=== PATIENT | female | born 1960 | race Caucasian/White ===

== ENCOUNTER 2018-02-25 18:45 | Emergency (ER) | payer BC, SELFPAY ==
--- NOTE | 2018-02-25 19:48 | RAD ---
TWO VIEWS CHEST 02/25/18 PROVIDED CLINICAL HISTORY: Chest pain. FINDINGS: No comparisons. The cardiac and mediastinal silhouette is within normal limits. No focal consolidation, pleural fluid or pneumothorax apparent. IMPRESSION: No evidence for an acute cardiopulmonary process. POS: [facility]
[2018-02-25] MEDS ORDERED: Ketorolac Tromethamine 30 MG/ML VIAL ONE (20:33)
--- NOTE | 2018-02-25 22:21 | CT ---
CT CHEST 02/25/18 PROVIDED CLINICAL HISTORY: Left rib pain. FINDINGS: The heart, pericardium and great vessels are suboptimally evaluated in the absence of IV contrast but demonstrate an unremarkable unenhanced CT appearance with the exception of minimal vascular calcific ation. The lungs are free of significant opacity. The airway appears patent and of normal caliber. No pleural fluid or pneumothorax apparent. The osseous structures demonstrate no evidence for an acute abnormality. There is a 3 cm left adrenal adenoma. IMPRESSION: No evidence for an acute process. POS: [facility]
== END 2018-02-25 21:37 | disposition home or self-care (01) ==
LOC: ERS 18:45
DX: S29.011A Strain of muscle and tendon of front wall of thorax, initial encounter (principal); I10 Essential (primary) hypertension; E03.9 Hypothyroidism, unspecified; E78.5 Hyperlipidemia, unspecified; F41.9 Anxiety disorder, unspecified; X50.9XXA Other and unspecified overexertion or strenuous movements or postures, initial encounter
CPT/HCPCS: 71046; 71250; 96372; J1885

== ENCOUNTER 2020-10-13 13:57 | Inpatient (IN) | payer SELFPAY ==
[2020-10-13 15:00] LABS: Actual Bicarbonate (HCO3a) 22.5 mEq/L (22-28); Analyzer IN Cardio ER; Base Excess (BEa) -0.9 mEq/L (-2.0 to +3.0); Calcium, Ionized (arterial) 1.08 mmol/L (1.12-1.30); Hemoglobin (Hb) 14.8 g/dL (12.0-16.0); Potassium - ABG Lab 3.12 mmol/L (3.70-5.30); pH, Arterial 7.44 (7.35-7.45)
[2020-10-13] MEDS ORDERED: Dexamethasone 10 MG/ML VIAL ONE (15:04)
[2020-10-13 15:23] LABS: Puncture Site LRA
[2020-10-13 15:40] LABS: CKMB 5.9 ng/mL (0-6.6)
[2020-10-13] MEDS ORDERED: Dextrose 50% Abboject 50 ML SYRINGE SLOW IVP PRN (16:26)
[2020-10-13] MEDS ORDERED: Dextrose 5% in Water 1,000 ML IV PRN (16:26)
[2020-10-13] MEDS ORDERED: HumaLOG 300 UNITS/3 ML VIAL SC PRN (16:26)
[2020-10-13] MEDS ORDERED: Metoclopramide HCl 10 MG/2 ML VIAL IVP PRN (16:30)
[2020-10-13] MEDS ORDERED: guaiFENesin 200 MG TAB PO PRN (16:32)
[2020-10-13] MEDS: Sodium Chloride 0.9% 1,000 ML IV SCH (16:50)
[2020-10-13] MEDS ORDERED: Albuterol 200 PUFF (6.7GM INHALER) INH PRN (17:21)
[2020-10-13] MEDS ORDERED: Atorvastatin Calcium 20 MG TAB PO SCH (21:00)
[2020-10-13] MEDS ORDERED: Famotidine/PF 20 mg/2ml Vial ONE (22:10)
[2020-10-13] MEDS ORDERED: Enoxaparin Sodium 40 MG/0.4 ML SYRINGE ONE (22:10)
[2020-10-13] MEDS: Famotidine/PF 20 mg/2ml Vial SLOW IVP SCH (22:30)
[2020-10-13] MEDS: Enoxaparin Sodium 40 MG/0.4 ML SYRINGE SC SCH (22:30)
[2020-10-13] MEDS ORDERED: Acetaminophen 325 MG TAB ONE (22:42)
[2020-10-13] MEDS: Acetaminophen 325 MG TAB PO PRN (23:56)
[2020-10-14 05:12] LABS: #Eosinphils 0.1 thou/uL (0.0-0.7); #Lymphocytes 1.3 thou/uL (1.20-3.40); #Monocytes 0.7 thou/uL (0.11-0.59); %Basophils 0.1 % (0.0-1.0); %Eosinophils 0.5 % (0.0-10.0); %Lymphocytes 8.1 % (21.0-51.0); %Monocytes 4.4 % (0.0-10.0); %Neutrophils 86.9 % (42.0-75.0); Hemoglobin 14.5 g/dL (12.0-16.0); Mean Corpuscular HGB CONC 33.2 g/dL (32.0-36.0); Mean Corpuscular Hemoglobin 29.6 pg (27.0-31.0); Mean Corpuscular Volume 89.1 fL (78.0-98.0); Mean Platelet Volume 10.4 fL (7.4-10.4); Platelet Count 227 thou/uL (130-400); RBC Distribution Width 12.8 % (11.5-14.5); Red Blood Cell (RBC) Count 4.88 mill/uL (4.20-5.40); White Blood Cell (WBC) Count 16.1 thou/uL (4.8-10.8)
[2020-10-14] MEDS ORDERED: Lorazepam 1 MG TAB ONE (05:13)
[2020-10-14 05:23] LABS: Anion Gap 18 mmol/L (10-20); BUN (Urea Nitrogen) 20 mg/dL (9.8-20.1); Calc. Creatinine Clearance 122 mL/min (70-130); Calcium 8.1 mg/dL (7.8-10.44); Carbon Dioxide 18 mmol/L (23-31); Chloride 104 mmol/L (98-107); Glucose 117 mg/dL (80-115); Potassium 3.6 mmol/L (3.5-5.1); Sodium 136 mmol/L (136-145)
[2020-10-14 05:43] LABS: Ferritin 716.77 ng/mL (10-291); Thyroid Stimulating Hormone 0.9501 uIU/mL (0.35-4.94)
[2020-10-14] MEDS ORDERED: Dexamethasone 6 MG in Sodium Chloride 0.9% 50 ML IVPB SCH (09:00)
[2020-10-14] MEDS: Levothyroxine Sodium 75 MCG TAB PO SCH (09:03)
[2020-10-14] MEDS ORDERED: Enoxaparin Sodium 40 MG/0.4 ML SYRINGE ONE (09:10)
[2020-10-14] MEDS ORDERED: Famotidine/PF 20 mg/2ml Vial ONE (09:10)
[2020-10-14] MEDS ORDERED: Dexamethasone 10 MG/ML VIAL ONE (09:12)
[2020-10-14] MEDS: Sodium Chloride 0.9% 1,000 ML IV SCH (09:31)
[2020-10-14] MEDS: Famotidine/PF 20 mg/2ml Vial SLOW IVP SCH ×2 (09:33→20:42)
[2020-10-14] MEDS: Enoxaparin Sodium 40 MG/0.4 ML SYRINGE SC SCH ×2 (09:33→20:42)
[2020-10-14] MEDS ORDERED: Dexamethasone 10 MG in Sodium Chloride 0.9% 50 ML IVPB SCH (12:15)
[2020-10-14 12:17] LABS: ALT (SGPT) 36 U/L (8-55); AST (SGOT) 49 U/L (5-34); Albumin 3.5 g/dL (3.4-4.8); Alkaline Phosphatase 124 U/L (40-110); Anion Gap 18 mmol/L (10-20); BUN (Urea Nitrogen) 20 mg/dL (9.8-20.1); Bilirubin, Total 0.4 mg/dL (0.2-1.2); Calc. Creatinine Clearance 122 mL/min (70-130); Calcium 8.3 mg/dL (7.8-10.44); Carbon Dioxide 20 mmol/L (23-31); Chloride 103 mmol/L (98-107); Globulin 3.6 g/dL (2.4-3.5); Glucose 115 mg/dL (80-115); Potassium 3.4 mmol/L (3.5-5.1); Protein, Total 7.1 g/dL (5.8-8.1); Sodium 138 mmol/L (136-145)
[2020-10-14] MEDS ORDERED: Lactated Ringer's 1,000 ML IV SCH (12:45)
[2020-10-14] MEDS ORDERED: BARICITINIB 2 MG TAB PO SCH (14:45)
[2020-10-14] MEDS: Lorazepam 0.5 MG TAB PO PRN (20:42)
[2020-10-14] MEDS: Dexamethasone 10 MG in Sodium Chloride 0.9% 50 ML IVPB SCH (21:10)
[2020-10-15 04:32] LABS: ALT (SGPT) 34 U/L (8-55); AST (SGOT) 45 U/L (5-34); Albumin 3.1 g/dL (3.4-4.8); Alkaline Phosphatase 130 U/L (40-110); Anion Gap 16 mmol/L (10-20); BUN (Urea Nitrogen) 19 mg/dL (9.8-20.1); Bilirubin, Total 0.4 mg/dL (0.2-1.2); CRP (Inflammatory) 4.92 mg/dL (= or < 0.5); Calc. Creatinine Clearance 129 mL/min (70-130); Calcium 8.3 mg/dL (7.8-10.44); Carbon Dioxide 20 mmol/L (23-31); Chloride 105 mmol/L (98-107); Globulin 3.3 g/dL (2.4-3.5); Glucose 113 mg/dL (80-115); Potassium 4.1 mmol/L (3.5-5.1); Protein, Total 6.4 g/dL (5.8-8.1); Sodium 137 mmol/L (136-145)
[2020-10-15 04:37] LABS: Hemoglobin 12.9 g/dL (12.0-16.0); Mean Corpuscular Volume 90.7 fL (78.0-98.0); Mean Platelet Volume 10.5 fL (7.4-10.4); Platelet Count 277 thou/uL (130-400); RBC Distribution Width 12.9 % (11.5-14.5); Red Blood Cell (RBC) Count 4.46 mill/uL (4.20-5.40); White Blood Cell (WBC) Count 16.3 thou/uL (4.8-10.8)
[2020-10-15 05:25] LABS: Band 7 % (5-11); Lymphocytes 9 % (21-51); MDiff Complete? YES; Monocytes 3 % (0-10); Myelocyte 2 % (0-0); Neutrophil 79 % (42-75)
[2020-10-15] MEDS: Levothyroxine Sodium 75 MCG TAB PO SCH (05:31)
[2020-10-15] MEDS: Enoxaparin Sodium 40 MG/0.4 ML SYRINGE SC SCH ×2 (08:41→19:59)
[2020-10-15] MEDS: BARICITINIB 2 MG TAB PO SCH (08:42)
[2020-10-15] MEDS: Aspirin 81 mg Enteric Coated Tablet PO SCH (08:43)
[2020-10-15] MEDS: Famotidine/PF 20 mg/2ml Vial SLOW IVP SCH (08:43)
[2020-10-15] MEDS: Benzonatate 100 MG CAP PO PRN ×2 (08:43→20:00)
[2020-10-15] MEDS ORDERED: Furosemide 40 MG/4 ML VIAL SLOW IVP SCH (10:30)
[2020-10-15] MEDS: Dexamethasone 10 MG in Sodium Chloride 0.9% 50 ML IVPB SCH (10:59)
[2020-10-15] MEDS: Dexamethasone 10 MG/ML VIAL SLOW IVP SCH (19:59)
[2020-10-15] MEDS: Acetaminophen 325 MG TAB PO PRN (19:59)
[2020-10-15] MEDS: Famotidine 20 MG TAB PO SCH (20:00)
[2020-10-15] MEDS: Lorazepam 0.5 MG TAB PO PRN (20:00)
[2020-10-16 04:37] LABS: ALT (SGPT) 35 U/L (8-55); AST (SGOT) 29 U/L (5-34); Albumin 3.2 g/dL (3.4-4.8); Alkaline Phosphatase 150 U/L (40-110); Anion Gap 12 mmol/L (10-20); BUN (Urea Nitrogen) 29 mg/dL (9.8-20.1); Bilirubin, Total 0.5 mg/dL (0.2-1.2); Calc. Creatinine Clearance 119 mL/min (70-130); Calcium 8.5 mg/dL (7.8-10.44); Carbon Dioxide 26 mmol/L (23-31); Chloride 105 mmol/L (98-107); Globulin 3.1 g/dL (2.4-3.5); Glucose 116 mg/dL (80-115); Potassium 3.9 mmol/L (3.5-5.1); Protein, Total 6.3 g/dL (5.8-8.1); Sodium 139 mmol/L (136-145)
[2020-10-16] MEDS: Levothyroxine Sodium 75 MCG TAB PO SCH (05:37)
[2020-10-16 06:44] LABS: Hemoglobin 13.6 g/dL (12.0-16.0); Mean Corpuscular HGB CONC 32.8 g/dL (32.0-36.0); Mean Corpuscular Hemoglobin 29.9 pg (27.0-31.0); Mean Platelet Volume 10.1 fL (7.4-10.4); Platelet Count 306 thou/uL (130-400); RBC Distribution Width 12.9 % (11.5-14.5); Red Blood Cell (RBC) Count 4.57 mill/uL (4.20-5.40); White Blood Cell (WBC) Count 17.4 thou/uL (4.8-10.8)
[2020-10-16 06:45] LABS: Band 9 % (5-11); Lymphocytes 14 % (21-51); MDiff Complete? YES; Monocytes 2 % (0-10); Neutrophil 75 % (42-75)
[2020-10-16] MEDS: Aspirin 81 mg Enteric Coated Tablet PO SCH (08:44)
[2020-10-16] MEDS: Famotidine 20 MG TAB PO SCH ×2 (08:44→22:38)
[2020-10-16] MEDS: Dexamethasone 10 MG/ML VIAL SLOW IVP SCH ×2 (08:44→22:56)
[2020-10-16] MEDS: BARICITINIB 2 MG TAB PO SCH (08:45)
[2020-10-16] MEDS: Enoxaparin Sodium 40 MG/0.4 ML SYRINGE SC SCH ×2 (08:45→21:52)
[2020-10-16] MEDS ORDERED: Succinylcholine 200 MG/10 ml SYRINGE FS ONE (08:51)
[2020-10-16] MEDS ORDERED: PROPOFOL 200 MG/20 ML VIAL ONE (08:51)
[2020-10-16] MEDS ORDERED: Propofol 1,000 MG/100 ML VIAL IV ONE (19:24)
[2020-10-16] MEDS ORDERED: Lorazepam 2 MG/ML VIAL ONE (19:24)
[2020-10-16] MEDS ORDERED: Vecuronium 10 MG VIAL ONE (19:52)
[2020-10-16] MEDS ORDERED: Fentanyl CADD 100 ML ONE (20:16)
[2020-10-16 20:26] LABS: Actual Bicarbonate (HCO3a) 25.6 mEq/L (22-28); CO2 Tension 50.5 mmHg (35.0-45.0); Calcium, Ionized (arterial) 1.18 mmol/L (1.12-1.30); Carboxyhemoglobin (COHb) 0.2 gm% (0.0-3.0); Hemoglobin (Hb) 13.8 g/dL (12.0-16.0); O2 Tension (PaO2), arterial 70.7 mmHg (> 80.0); pH, Arterial 7.32 (7.35-7.45)
[2020-10-16 20:28] LABS: ALV-art Gradient 579.175 mmHg (0-20); Puncture Site LRA
[2020-10-16] MEDS ORDERED: DISCONTINUE PREVIOUS NARCOTIC PAIN MEDICATIONS AND BENZODIAZEPINES FS SCH (21:15)
[2020-10-16] MEDS ORDERED: Propofol BOLUS 1,000 MG/100 ML VIAL IV PRN (21:15)
[2020-10-16] MEDS ORDERED: Fentanyl BOLUS 250 ML IVPB PRN (21:15)
[2020-10-16] MEDS: Fentanyl CADD 100 ML IV SCH (21:20)
[2020-10-16] MEDS ORDERED: Famotidine/PF 20 mg/2ml Vial SLOW IVP SCH (22:00)
[2020-10-16] MEDS: Propofol 1,000 MG/100 ML VIAL IV PRN (23:58)
[2020-10-17] MEDS: Lorazepam 2 MG/ML VIAL SLOW IVP PRN ×2 (03:07→21:45)
[2020-10-17 05:08] LABS: ALT (SGPT) 30 U/L (8-55); AST (SGOT) 23 U/L (5-34); Alkaline Phosphatase 126 U/L (40-110); Anion Gap 16 mmol/L (10-20); BUN (Urea Nitrogen) 41 mg/dL (9.8-20.1); Bilirubin, Total 0.5 mg/dL (0.2-1.2); Calc. Creatinine Clearance 102 mL/min (70-130); Calcium 8.3 mg/dL (7.8-10.44); Carbon Dioxide 24 mmol/L (23-31); Chloride 105 mmol/L (98-107); Globulin 3.3 g/dL (2.4-3.5); Glucose 158 mg/dL (80-115); Potassium 4.6 mmol/L (3.5-5.1); Protein, Total 6.3 g/dL (5.8-8.1); Sodium 140 mmol/L (136-145)
[2020-10-17] MEDS: Levothyroxine Sodium 75 MCG TAB PO SCH (06:12)
[2020-10-17] MEDS: HumaLOG 300 UNITS/3 ML VIAL SC PRN (06:14)
[2020-10-17] MEDS: Famotidine/PF 20 mg/2ml Vial SLOW IVP SCH ×2 (08:29→20:03)
[2020-10-17] MEDS: Dexamethasone 10 MG/ML VIAL SLOW IVP SCH ×2 (08:30→20:03)
[2020-10-17] MEDS: BARICITINIB 2 MG TAB PO SCH (08:30)
[2020-10-17] MEDS: Enoxaparin Sodium 40 MG/0.4 ML SYRINGE SC SCH ×2 (08:31→20:03)
[2020-10-17] MEDS: Aspirin Chewable 81 MG TAB PO SCH (08:32)
[2020-10-17] MEDS ORDERED: Vecuronium 10 MG VIAL ONE (10:52)
[2020-10-17 11:13] LABS: Actual Bicarbonate (HCO3a) 25.4 mEq/L (22-28); Base Excess (BEa) 1.1 mEq/L (-2.0 to +3.0); CO2 Tension 39.1 mmHg (35.0-45.0); Calcium, Ionized (arterial) 1.17 mmol/L (1.12-1.30); Carboxyhemoglobin (COHb) 0.2 gm% (0.0-3.0); Hemoglobin (Hb) 13.1 g/dL (12.0-16.0); Potassium - ABG Lab 4.17 mmol/L (3.70-5.30); pH, Arterial 7.43 (7.35-7.45)
[2020-10-17 11:17] LABS: Mean Corpuscular Hemoglobin 29.6 pg (27.0-31.0); Mean Corpuscular Volume 89.7 fL (78.0-98.0); Mean Platelet Volume 10.5 fL (7.4-10.4); Platelet Count 331 thou/uL (130-400); RBC Distribution Width 12.9 % (11.5-14.5); Red Blood Cell (RBC) Count 4.07 mill/uL (4.20-5.40); White Blood Cell (WBC) Count 23.3 thou/uL (4.8-10.8)
[2020-10-17 11:18] LABS: ALV-art Gradient 261.325 mmHg (0-20); O2 Tension (PaO2), arterial 46.3 mmHg (> 80.0); Puncture Site LRA
[2020-10-17] MEDS ORDERED: Fentanyl CADD 100 ML ONE (11:29)
[2020-10-17 11:34] LABS: ALT (SGPT) 28 U/L (8-55); AST (SGOT) 24 U/L (5-34); Albumin 2.9 g/dL (3.4-4.8); Alkaline Phosphatase 115 U/L (40-110); Anion Gap 16 mmol/L (10-20); BUN (Urea Nitrogen) 45 mg/dL (9.8-20.1); Bilirubin, Total 0.5 mg/dL (0.2-1.2); Calc. Creatinine Clearance 93 mL/min (70-130); Calcium 8.3 mg/dL (7.8-10.44); Carbon Dioxide 23 mmol/L (23-31); Chloride 107 mmol/L (98-107); Globulin 3.5 g/dL (2.4-3.5); Glucose 151 mg/dL (80-115); Potassium 5.1 mmol/L (3.5-5.1); Protein, Total 6.4 g/dL (5.8-8.1); Sodium 141 mmol/L (136-145)
[2020-10-17 12:11] LABS: Band 3 % (5-11); Large Platelets SLIGHT; Lymphocytes 8 % (21-51); MDiff Complete? YES; Metamyelocyte 1 % (0-0); Monocytes 8 % (0-10); Myelocyte 1 % (0-0); Neutrophil 79 % (42-75); Platelet Morphology Comment Appears Adequate; Polychromasia SLIGHT = 2-3 cells (100X) (0-2/hpf)
[2020-10-17] MEDS: Polyethylene Glycol 3350 17 GM Packet PER TUBE SCH (16:44)
[2020-10-17] MEDS: Senokot S 8.6-50 MG TAB PO SCH ×2 (16:45→20:03)
[2020-10-17] MEDS ORDERED: Sterile Water 10 ML ONE (21:44)
[2020-10-17] MEDS: Vecuronium 10 MG VIAL IVP PRN (21:45)
[2020-10-17] MEDS: Propofol 1,000 MG/100 ML VIAL IV PRN (21:57)
[2020-10-18] MEDS ORDERED: Sterile Water 10 ML ONE ×2 (00:05→21:17)
[2020-10-18] MEDS: Vecuronium 10 MG VIAL IVP PRN ×2 (00:07→21:19)
[2020-10-18] MEDS: Lorazepam 2 MG/ML VIAL SLOW IVP PRN ×3 (00:07→21:19)
[2020-10-18 04:18] LABS: Hemoglobin 12.3 g/dL (12.0-16.0); Mean Corpuscular HGB CONC 33.3 g/dL (32.0-36.0); Mean Corpuscular Hemoglobin 30.1 pg (27.0-31.0); Mean Corpuscular Volume 90.3 fL (78.0-98.0); Mean Platelet Volume 10.5 fL (7.4-10.4); Platelet Count 338 thou/uL (130-400); RBC Distribution Width 12.6 % (11.5-14.5); Red Blood Cell (RBC) Count 4.07 mill/uL (4.20-5.40); White Blood Cell (WBC) Count 20.5 thou/uL (4.8-10.8)
[2020-10-18 04:32] LABS: ALT (SGPT) 23 U/L (8-55); AST (SGOT) 11 U/L (5-34); Albumin 3.1 g/dL (3.4-4.8); Alkaline Phosphatase 99 U/L (40-110); Anion Gap 13 mmol/L (10-20); BUN (Urea Nitrogen) 41 mg/dL (9.8-20.1); Bilirubin, Total 0.5 mg/dL (0.2-1.2); CRP (Inflammatory) 8.69 mg/dL (= or < 0.5); Calc. Creatinine Clearance 112 mL/min (70-130); Calcium 8.4 mg/dL (7.8-10.44); Carbon Dioxide 26 mmol/L (23-31); Chloride 106 mmol/L (98-107); Glucose 183 mg/dL (80-115); Potassium 4.3 mmol/L (3.5-5.1); Protein, Total 6.1 g/dL (5.8-8.1); Sodium 141 mmol/L (136-145)
[2020-10-18 05:29] LABS: Band 12 % (5-11); Lymphocytes 7 % (21-51); MDiff Complete? YES; Metamyelocyte 1 % (0-0); Monocytes 1 % (0-10); Neutrophil 79 % (42-75)
[2020-10-18] MEDS: Levothyroxine Sodium 75 MCG TAB PO SCH (05:39)
[2020-10-18] MEDS: Propofol 1,000 MG/100 ML VIAL IV PRN ×4 (05:39→23:51)
[2020-10-18] MEDS: HumaLOG 300 UNITS/3 ML VIAL SC PRN (06:15)
[2020-10-18 08:12] LABS: Actual Bicarbonate (HCO3a) 25.7 mEq/L (22-28); Base Excess (BEa) 1.6 mEq/L (-2.0 to +3.0); CO2 Tension 38.7 mmHg (35.0-45.0); Calcium, Ionized (arterial) 1.17 mmol/L (1.12-1.30); Carboxyhemoglobin (COHb) 0.4 gm% (0.0-3.0); Hemoglobin (Hb) 12.7 g/dL (12.0-16.0); O2 Tension (PaO2), arterial 83.2 mmHg (> 80.0); Potassium - ABG Lab 4.28 mmol/L (3.70-5.30); pH, Arterial 7.44 (7.35-7.45)
[2020-10-18 08:15] LABS: ALV-art Gradient 224.925 mmHg (0-20); Puncture Site LRA
[2020-10-18] MEDS: Enoxaparin Sodium 40 MG/0.4 ML SYRINGE SC SCH ×2 (09:03→20:21)
[2020-10-18] MEDS: BARICITINIB 2 MG TAB PO SCH (09:03)
[2020-10-18] MEDS: Aspirin Chewable 81 MG TAB PO SCH (09:03)
[2020-10-18] MEDS: Famotidine 20 MG TAB PO SCH ×2 (09:05→20:21)
[2020-10-18] MEDS: Senokot S 8.6-50 MG TAB PO SCH ×2 (09:06→20:22)
[2020-10-18] MEDS: Polyethylene Glycol 3350 17 GM Packet PER TUBE SCH (09:06)
[2020-10-18] MEDS ORDERED: Fentanyl CADD 100 ML ONE (11:34)
[2020-10-18] MEDS: Fentanyl CADD 100 ML IV SCH (11:38)
[2020-10-18] MEDS: Dexamethasone 10 MG/ML VIAL SLOW IVP SCH ×2 (11:38→20:21)
[2020-10-19] MEDS: Acetaminophen 325 MG TAB PO PRN (00:10)
[2020-10-19] MEDS: Lorazepam 2 MG/ML VIAL SLOW IVP PRN ×3 (03:43→16:51)
[2020-10-19] MEDS ORDERED: Sterile Water 10 ML ONE ×2 (03:58→04:49)
[2020-10-19] MEDS: Vecuronium 10 MG VIAL IVP PRN ×6 (04:01→16:51)
[2020-10-19 04:20] LABS: ALT (SGPT) 19 U/L (8-55); AST (SGOT) 11 U/L (5-34); Albumin 2.9 g/dL (3.4-4.8); Alkaline Phosphatase 95 U/L (40-110); Anion Gap 13 mmol/L (10-20); BUN (Urea Nitrogen) 33 mg/dL (9.8-20.1); Bilirubin, Total 0.5 mg/dL (0.2-1.2); CRP (Inflammatory) 5.92 mg/dL (= or < 0.5); Calc. Creatinine Clearance 116 mL/min (70-130); Calcium 8.3 mg/dL (7.8-10.44); Carbon Dioxide 26 mmol/L (23-31); Chloride 108 mmol/L (98-107); Glucose 138 mg/dL (80-115); Potassium 4.6 mmol/L (3.5-5.1); Protein, Total 5.9 g/dL (5.8-8.1); Sodium 142 mmol/L (136-145)
[2020-10-19 04:28] LABS: Hemoglobin 11.9 g/dL (12.0-16.0); MDiff Complete? YES; Mean Corpuscular Hemoglobin 29.8 pg (27.0-31.0); Mean Corpuscular Volume 90.4 fL (78.0-98.0); Mean Platelet Volume 10.9 fL (7.4-10.4); Platelet Count 378 thou/uL (130-400); RBC Distribution Width 12.9 % (11.5-14.5); Red Blood Cell (RBC) Count 3.98 mill/uL (4.20-5.40); White Blood Cell (WBC) Count 22.6 thou/uL (4.8-10.8)
[2020-10-19 04:29] LABS: Band 14 % (5-11); Lymphocytes 8 % (21-51); Monocytes 5 % (0-10); Neutrophil 73 % (42-75); Platelet Morphology Comment Appears Adequate; RBC Morphology Normal
[2020-10-19] MEDS ORDERED: Vecuronium 10 MG VIAL ONE (04:49)
[2020-10-19] MEDS: Acetaminophen 650 MG/20.3 ML UDCUP PO PRN (05:35)
[2020-10-19] MEDS: Levothyroxine Sodium 75 MCG TAB PO SCH (05:36)
[2020-10-19] MEDS ORDERED: Fentanyl CADD 100 ML ONE (06:13)
[2020-10-19] MEDS: Fentanyl CADD 100 ML IV SCH ×2 (06:16→23:18)
[2020-10-19] MEDS: Propofol 1,000 MG/100 ML VIAL IV PRN ×3 (06:39→17:09)
[2020-10-19] MEDS: HumaLOG 300 UNITS/3 ML VIAL SC PRN ×2 (06:48→13:03)
[2020-10-19 08:06] LABS: pH, Arterial 7.25 (7.35-7.45)
[2020-10-19 08:07] LABS: Actual Bicarbonate (HCO3a) 26.1 mEq/L (22-28); Base Excess (BEa) -2.1 mEq/L (-2.0 to +3.0); Calcium, Ionized (arterial) 1.18 mmol/L (1.12-1.30); Carboxyhemoglobin (COHb) 0.3 gm% (0.0-3.0); Hemoglobin (Hb) 12.9 g/dL (12.0-16.0); O2 Tension (PaO2), arterial 71.1 mmHg (> 80.0); Potassium - ABG Lab 4.34 mmol/L (3.70-5.30); Puncture Site RRA
[2020-10-19] MEDS: Cefepime 2 GM in Sodium Chloride 0.9% 100 ML IVPB SCH ×2 (08:36→21:31)
[2020-10-19] MEDS: BARICITINIB 2 MG TAB PO SCH (08:37)
[2020-10-19] MEDS: Aspirin Chewable 81 MG TAB PO SCH (08:37)
[2020-10-19] MEDS: Famotidine 20 MG TAB PO SCH ×2 (08:37→21:33)
[2020-10-19] MEDS: Senokot S 8.6-50 MG TAB PO SCH ×2 (08:37→21:34)
[2020-10-19] MEDS: Enoxaparin Sodium 40 MG/0.4 ML SYRINGE SC SCH ×2 (08:37→21:31)
[2020-10-19] MEDS: Dexamethasone 10 MG/ML VIAL SLOW IVP SCH (08:38)
[2020-10-19] MEDS: Polyethylene Glycol 3350 17 GM Packet PER TUBE SCH (08:38)
[2020-10-19] MEDS ORDERED: Dexamethasone 10 MG in Sodium Chloride 0.9% 50 ML IVPB SCH (09:00)
[2020-10-19] MEDS: Vancomycin 1 GM in Premix Bag 1 BAG IVPB SCH (10:43)
[2020-10-20] MEDS: Vancomycin 1 GM in Premix Bag 1 BAG IVPB SCH ×3 (00:20→23:32)
[2020-10-20] MEDS: Levothyroxine Sodium 75 MCG TAB PO SCH (05:12)
[2020-10-20 05:17] LABS: ALT (SGPT) 17 U/L (8-55); AST (SGOT) 9 U/L (5-34); Albumin 2.5 g/dL (3.4-4.8); Alkaline Phosphatase 74 U/L (40-110); Anion Gap 13 mmol/L (10-20); BUN (Urea Nitrogen) 35 mg/dL (9.8-20.1); Bilirubin, Direct 0.4 mg/dL (0.1-0.3); Bilirubin, Total 0.6 mg/dL (0.2-1.2); Calc. Creatinine Clearance 0 mL/min (70-130); Calcium 8.1 mg/dL (7.8-10.44); Carbon Dioxide 27 mmol/L (23-31); Chloride 107 mmol/L (98-107); Globulin 2.9 g/dL (2.4-3.5); Glucose 106 mg/dL (80-115); Potassium 4.6 mmol/L (3.5-5.1); Protein, Total 5.4 g/dL (5.8-8.1); Sodium 142 mmol/L (136-145)
[2020-10-20] MEDS: Acetaminophen 650 MG/20.3 ML UDCUP PO PRN (05:17)
[2020-10-20] MEDS: Propofol 1,000 MG/100 ML VIAL IV PRN ×2 (05:18→20:33)
[2020-10-20 05:24] LABS: Band 51 % (5-11); Hemoglobin 10.2 g/dL (12.0-16.0); Lymphocytes 1 % (21-51); MDiff Complete? YES; Mean Corpuscular HGB CONC 31.2 g/dL (32.0-36.0); Mean Corpuscular Hemoglobin 29.4 pg (27.0-31.0); Mean Corpuscular Volume 94.2 fL (78.0-98.0); Mean Platelet Volume 10.5 fL (7.4-10.4); Metamyelocyte 1 % (0-0); Monocytes 4 % (0-10); Myelocyte 1 % (0-0); Neutrophil 42 % (42-75); Platelet Count 293 thou/uL (130-400); Platelet Morphology Comment Appears Adequate; RBC Distribution Width 12.9 % (11.5-14.5); Red Blood Cell (RBC) Count 3.47 mill/uL (4.20-5.40); White Blood Cell (WBC) Count 15.3 thou/uL (4.8-10.8)
[2020-10-20] MEDS ORDERED: Sodium Chloride 0.9% 500 ML IV SCH (05:30)
[2020-10-20 08:01] LABS: Actual Bicarbonate (HCO3a) 23.6 mEq/L (22-28); Base Excess (BEa) -2.7 mEq/L (-2.0 to +3.0); CO2 Tension 47.5 mmHg (35.0-45.0); Calcium, Ionized (arterial) 1.16 mmol/L (1.12-1.30); Carboxyhemoglobin (COHb) 0.1 gm% (0.0-3.0); Hemoglobin (Hb) 10.2 g/dL (12.0-16.0); Potassium - ABG Lab 4.67 mmol/L (3.70-5.30); pH, Arterial 7.31 (7.35-7.45)
[2020-10-20 08:03] LABS: ALV-art Gradient 595.725 mmHg (0-20); O2 Tension (PaO2), arterial 57.9 mmHg (> 80.0); Puncture Site RRA
[2020-10-20] MEDS ORDERED: ANTICOAG Communication Order-Pharmacy FS PRN (08:17)
[2020-10-20] MEDS ORDERED: methylPREDNISolone Sod Succ 40 MG VIAL IVP STA (08:18)
[2020-10-20 09:08] LABS: Hemoglobin 10.5 g/dL (12.0-16.0); Platelet Count 313 thou/uL (130-400)
[2020-10-20] MEDS ORDERED: Fentanyl CADD 100 ML ONE (09:27)
[2020-10-20] MEDS: Famotidine 20 MG TAB PO SCH ×2 (09:29→20:34)
[2020-10-20] MEDS: Aspirin Chewable 81 MG TAB PO SCH (09:29)
[2020-10-20] MEDS: BARICITINIB 2 MG TAB PO SCH (09:29)
[2020-10-20] MEDS: Dexamethasone 10 MG/ML VIAL SLOW IVP SCH (09:30)
[2020-10-20] MEDS: Cefepime 2 GM in Sodium Chloride 0.9% 100 ML IVPB SCH ×2 (09:30→20:31)
[2020-10-20] MEDS: Fentanyl CADD 100 ML IV SCH ×2 (09:33→20:38)
[2020-10-20] MEDS: Polyethylene Glycol 3350 17 GM Packet PER TUBE SCH (09:37)
[2020-10-20] MEDS: Senokot S 8.6-50 MG TAB PO SCH ×2 (09:38→20:34)
[2020-10-20] MEDS: Enoxaparin Sodium 100 MG/ML SYRINGE SC SCH ×2 (11:17→20:32)
[2020-10-20 23:09] LABS: Vancomycin, Trough 21.5 ug/mL
[2020-10-21] MEDS: HumaLOG 300 UNITS/3 ML VIAL SC PRN ×2 (00:49→06:39)
[2020-10-21 03:51] LABS: Anion Gap 10 mmol/L (10-20); BUN (Urea Nitrogen) 57 mg/dL (9.8-20.1); Calc. Creatinine Clearance 76 mL/min (70-130); Calcium 8.4 mg/dL (7.8-10.44); Carbon Dioxide 26 mmol/L (23-31); Chloride 107 mmol/L (98-107); Glucose 178 mg/dL (80-115); Sodium 138 mmol/L (136-145)
[2020-10-21 03:52] LABS: Band 39 % (5-11); Hemoglobin 10.3 g/dL (12.0-16.0); Hypochromia SLIGHT = 6-15 cells (100X) (0-5/hpf); Lymphocytes 1 % (21-51); MDiff Complete? YES; Mean Corpuscular HGB CONC 32.2 g/dL (32.0-36.0); Mean Corpuscular Hemoglobin 30.1 pg (27.0-31.0); Mean Corpuscular Volume 93.4 fL (78.0-98.0); Mean Platelet Volume 11.5 fL (7.4-10.4); Monocytes 5 % (0-10); Neutrophil 55 % (42-75); Platelet Count 321 thou/uL (130-400); Platelet Morphology Comment Appears Adequate; Red Blood Cell (RBC) Count 3.42 mill/uL (4.20-5.40); White Blood Cell (WBC) Count 21.4 thou/uL (4.8-10.8)
[2020-10-21] MEDS: Fentanyl CADD 100 ML IV SCH ×2 (05:47→16:50)
[2020-10-21] MEDS: Levothyroxine Sodium 75 MCG TAB PO SCH ×2 (06:07→06:29)
[2020-10-21 07:12] LABS: Actual Bicarbonate (HCO3a) 25.2 mEq/L (22-28); Base Excess (BEa) -0.2 mEq/L (-2.0 to +3.0); CO2 Tension 44.1 mmHg (35.0-45.0); Calcium, Ionized (arterial) 1.19 mmol/L (1.12-1.30); Carboxyhemoglobin (COHb) 0.1 gm% (0.0-3.0); Hemoglobin (Hb) 11.3 g/dL (12.0-16.0); O2 Tension (PaO2), arterial 104.9 mmHg (> 80.0); Potassium - ABG Lab 4.94 mmol/L (3.70-5.30); pH, Arterial 7.37 (7.35-7.45)
[2020-10-21 07:21] LABS: ALV-art Gradient 446.025 mmHg (0-20); Puncture Site RRA
[2020-10-21] MEDS: Polyethylene Glycol 3350 17 GM Packet PER TUBE SCH (08:30)
[2020-10-21] MEDS: Senokot S 8.6-50 MG TAB PO SCH ×2 (08:30→20:26)
[2020-10-21] MEDS: Aspirin Chewable 81 MG TAB PO SCH (08:43)
[2020-10-21] MEDS: Cefepime 2 GM in Sodium Chloride 0.9% 100 ML IVPB SCH (08:43)
[2020-10-21] MEDS: BARICITINIB 2 MG TAB PO SCH (08:43)
[2020-10-21] MEDS: Famotidine 20 MG TAB PO SCH ×2 (08:44→20:25)
[2020-10-21] MEDS: Enoxaparin Sodium 100 MG/ML SYRINGE SC SCH ×2 (08:44→20:16)
[2020-10-21] MEDS: Dexamethasone 10 MG/ML VIAL SLOW IVP SCH (08:44)
[2020-10-21] MEDS: Lorazepam 2 MG/ML VIAL SLOW IVP PRN ×3 (09:27→20:16)
[2020-10-21] MEDS ORDERED: methylPREDNISolone Sod Succ 40 MG VIAL IVP SCH (10:45)
[2020-10-21] MEDS: Vancomycin HCl 750 MG in Sodium Chloride 0.9% 250 ML 250 ML IVPB SCH (10:55)
[2020-10-21] MEDS ORDERED: SODIUM CHLORIDE 0.9% IVPB SCH (13:00)
[2020-10-21] MEDS ORDERED: METHYLPREDNISOLONE SOD SUCC IVPB SCH (13:00)
[2020-10-21] MEDS: Vecuronium 10 MG VIAL IVP PRN ×2 (13:42→20:16)
[2020-10-21] MEDS ORDERED: Fentanyl CADD 100 ML ONE (16:41)
[2020-10-21] MEDS ORDERED: Sterile Water 10 ML ONE (20:12)
[2020-10-21] MEDS: Cefepime 1 GM in Sodium Chloride 0.9% 100 ML IVPB SCH (20:17)
[2020-10-22] MEDS: HumaLOG 300 UNITS/3 ML VIAL SC PRN ×3 (01:00→12:51)
[2020-10-22] MEDS: Lorazepam 2 MG/ML VIAL SLOW IVP PRN ×4 (01:51→15:19)
[2020-10-22] MEDS: Fentanyl CADD 100 ML IV SCH ×3 (02:55→23:30)
[2020-10-22 04:23] LABS: Anion Gap 13 mmol/L (10-20); BUN (Urea Nitrogen) 71 mg/dL (9.8-20.1); Calc. Creatinine Clearance 75 mL/min (70-130); Calcium 8.7 mg/dL (7.8-10.44); Carbon Dioxide 23 mmol/L (23-31); Chloride 107 mmol/L (98-107); Glucose 170 mg/dL (80-115); Potassium 5.1 mmol/L (3.5-5.1); Sodium 138 mmol/L (136-145)
[2020-10-22] MEDS: Propofol 1,000 MG/100 ML VIAL IV PRN ×3 (05:09→20:27)
[2020-10-22] MEDS: Levothyroxine Sodium 75 MCG TAB PO SCH (05:09)
[2020-10-22 05:19] LABS: Band 18 % (5-11); Hemoglobin 10.8 g/dL (12.0-16.0); Hypochromia SLIGHT = 6-15 cells (100X) (0-5/hpf); Lymphocytes 6 % (21-51); MDiff Complete? YES; Mean Corpuscular HGB CONC 30.7 g/dL (32.0-36.0); Mean Corpuscular Hemoglobin 29.5 pg (27.0-31.0); Mean Corpuscular Volume 95.9 fL (78.0-98.0); Mean Platelet Volume 11.3 fL (7.4-10.4); Metamyelocyte 4 % (0-0); Monocytes 4 % (0-10); Myelocyte 5 % (0-0); Neutrophil 63 % (42-75); Platelet Count 385 thou/uL (130-400); Platelet Morphology Comment Appears Adequate; Red Blood Cell (RBC) Count 3.67 mill/uL (4.20-5.40); White Blood Cell (WBC) Count 23.8 thou/uL (4.8-10.8)
[2020-10-22 08:03] LABS: Actual Bicarbonate (HCO3a) 21.4 mEq/L (22-28); CO2 Tension 35.9 mmHg (35.0-45.0); Calcium, Ionized (arterial) 1.22 mmol/L (1.12-1.30); Carboxyhemoglobin (COHb) 0.2 gm% (0.0-3.0); Hemoglobin (Hb) 12.7 g/dL (12.0-16.0); Potassium - ABG Lab 5.13 mmol/L (3.70-5.30); pH, Arterial 7.39 (7.35-7.45)
[2020-10-22 08:07] LABS: O2 Tension (PaO2), arterial 59.1 mmHg (> 80.0); Puncture Site RRA
[2020-10-22 08:08] LABS: ALV-art Gradient 323.825 mmHg (0-20)
[2020-10-22] MEDS: Aspirin Chewable 81 MG TAB PO SCH (09:16)
[2020-10-22] MEDS: Famotidine 20 MG TAB PO SCH ×2 (09:16→20:28)
[2020-10-22] MEDS: BARICITINIB 2 MG TAB PO SCH (09:16)
[2020-10-22] MEDS: Dexamethasone 10 MG/ML VIAL SLOW IVP SCH (09:17)
[2020-10-22] MEDS: Enoxaparin Sodium 100 MG/ML SYRINGE SC SCH ×2 (09:17→20:27)
[2020-10-22] MEDS: Cefepime 1 GM in Sodium Chloride 0.9% 100 ML IVPB SCH ×2 (09:18→20:28)
[2020-10-22] MEDS: Polyethylene Glycol 3350 17 GM Packet PER TUBE SCH (09:18)
[2020-10-22] MEDS: Senokot S 8.6-50 MG TAB PO SCH ×2 (09:18→20:28)
[2020-10-22 11:15] LABS: Vancomycin, Trough 29.7 ug/mL
[2020-10-22] MEDS ORDERED: Fentanyl CADD 100 ML ONE ×2 (13:08→23:22)
[2020-10-22] MEDS: Vecuronium 10 MG VIAL IVP PRN (13:34)
[2020-10-22] MEDS: Vancomycin HCl 750 MG in Sodium Chloride 0.9% 250 ML 250 ML IVPB SCH ×2 (14:55)
[2020-10-22] MEDS: [UNRECOGNIZED DRUG - REMARK] IVPB SCH (23:30)
[2020-10-23 02:59] LABS: Hemoglobin 11.1 g/dL (12.0-16.0); Platelet Count 412 thou/uL (130-400)
[2020-10-23 03:19] LABS: Band 12 % (5-11); Hemoglobin 11.1 g/dL (12.0-16.0); Hypochromia SLIGHT = 6-15 cells (100X) (0-5/hpf); Lymphocytes 12 % (21-51); MDiff Complete? YES; Mean Corpuscular HGB CONC 32.4 g/dL (32.0-36.0); Mean Corpuscular Volume 92.7 fL (78.0-98.0); Mean Platelet Volume 11.1 fL (7.4-10.4); Monocytes 10 % (0-10); Neutrophil 66 % (42-75); Platelet Count 384 thou/uL (130-400); Platelet Morphology Comment Appears Adequate; RBC Distribution Width 12.8 % (11.5-14.5); Red Blood Cell (RBC) Count 3.69 mill/uL (4.20-5.40); White Blood Cell (WBC) Count 28.1 thou/uL (4.8-10.8)
[2020-10-23 03:48] LABS: ALT (SGPT) 31 U/L (8-55); ALT (SGPT) 34 U/L (8-55); AST (SGOT) 18 U/L (5-34); AST (SGOT) 21 U/L (5-34); Albumin 2.6 g/dL (3.4-4.8); Albumin 2.7 g/dL (3.4-4.8); Alkaline Phosphatase 103 U/L (40-110); Alkaline Phosphatase 93 U/L (40-110); Anion Gap 14 mmol/L (10-20); BUN (Urea Nitrogen) 77 mg/dL (9.8-20.1); Bilirubin, Direct 0.2 mg/dL (0.1-0.3); Bilirubin, Total 0.5 mg/dL (0.2-1.2); CRP (Inflammatory) 5.19 mg/dL (= or < 0.5); Calc. Creatinine Clearance 84 mL/min (70-130); Calcium 8.6 mg/dL (7.8-10.44); Carbon Dioxide 23 mmol/L (23-31); Chloride 109 mmol/L (98-107); Globulin 3.1 g/dL (2.4-3.5); Glucose 98 mg/dL (80-115); Potassium 5.6 mmol/L (3.5-5.1); Protein, Total 5.7 g/dL (5.8-8.1); Sodium 140 mmol/L (136-145)
[2020-10-23] MEDS: Levothyroxine Sodium 75 MCG TAB PO SCH (05:37)
[2020-10-23 07:44] LABS: Actual Bicarbonate (HCO3a) 21.8 mEq/L (22-28); Base Excess (BEa) -2.4 mEq/L (-2.0 to +3.0); CO2 Tension 35.6 mmHg (35.0-45.0); Calcium, Ionized (arterial) 1.23 mmol/L (1.12-1.30); Carboxyhemoglobin (COHb) 0.2 gm% (0.0-3.0); Hemoglobin (Hb) 12.7 g/dL (12.0-16.0); Potassium - ABG Lab 5.58 mmol/L (3.70-5.30); pH, Arterial 7.41 (7.35-7.45)
[2020-10-23 07:45] LABS: O2 Tension (PaO2), arterial 51.5 mmHg (> 80.0); Puncture Site RRA
[2020-10-23] MEDS ORDERED: Dextrose 50% Abboject 50 ML SYRINGE SLOW IVP SCH (08:15)
[2020-10-23] MEDS ORDERED: Insulin Regular 300 UNITS/3 ML VIAL IVP SCH (08:30)
[2020-10-23] MEDS: Aspirin Chewable 81 MG TAB PO SCH (09:23)
[2020-10-23] MEDS: Famotidine 20 MG TAB PO SCH ×2 (09:23→20:58)
[2020-10-23] MEDS: Enoxaparin Sodium 100 MG/ML SYRINGE SC SCH ×2 (09:23→20:57)
[2020-10-23] MEDS: BARICITINIB 2 MG TAB PO SCH (09:23)
[2020-10-23] MEDS: Propofol 1,000 MG/100 ML VIAL IV PRN ×3 (09:28→20:58)
[2020-10-23] MEDS: Polyethylene Glycol 3350 17 GM Packet PER TUBE SCH (09:43)
[2020-10-23] MEDS: Senokot S 8.6-50 MG TAB PO SCH ×2 (09:43→20:58)
[2020-10-23] MEDS: Dexamethasone 10 MG/ML VIAL SLOW IVP SCH (09:43)
[2020-10-23 10:50] LABS: Vancomycin, Random 26.9 ug/mL (See Comment)
[2020-10-23] MEDS ORDERED: Labetalol HCl 100 MG/20 ML VIAL SLOW IVP PRN (11:25)
[2020-10-23] MEDS: [UNRECOGNIZED DRUG - REMARK] IVPB SCH ×2 (11:54→22:35)
[2020-10-23 12:29] LABS: Potassium 5.3 mmol/L (3.5-5.1)
[2020-10-23] MEDS ORDERED: Fentanyl CADD 100 ML ONE (14:05)
[2020-10-23] MEDS: Fentanyl CADD 100 ML IV SCH (14:07)
[2020-10-23] MEDS ORDERED: Propofol 1,000 MG/100 ML VIAL IV ONE (23:55)
[2020-10-24] MEDS: Lorazepam 2 MG/ML VIAL SLOW IVP PRN ×7 (03:30→15:54)
[2020-10-24] MEDS ORDERED: Fentanyl CADD 100 ML ONE ×2 (03:55→14:48)
[2020-10-24 03:57] LABS: ALT (SGPT) 45 U/L (8-55); AST (SGOT) 24 U/L (5-34); Albumin 2.6 g/dL (3.4-4.8); Alkaline Phosphatase 102 U/L (40-110); Anion Gap 16 mmol/L (10-20); BUN (Urea Nitrogen) 64 mg/dL (9.8-20.1); Bilirubin, Total 0.6 mg/dL (0.2-1.2); CRP (Inflammatory) 7.28 mg/dL (= or < 0.5); Calc. Creatinine Clearance 85 mL/min (70-130); Calcium 8.9 mg/dL (7.8-10.44); Carbon Dioxide 21 mmol/L (23-31); Chloride 106 mmol/L (98-107); Globulin 3.5 g/dL (2.4-3.5); Glucose 87 mg/dL (80-115); Potassium 6.4 mmol/L (3.5-5.1); Protein, Total 6.1 g/dL (5.8-8.1); Sodium 137 mmol/L (136-145)
[2020-10-24] MEDS: Fentanyl CADD 100 ML IV SCH ×2 (04:18→14:51)
[2020-10-24 04:30] LABS: Band 15 % (5-11); Hemoglobin 9.8 g/dL (12.0-16.0); Lymphocytes 3 % (21-51); MDiff Complete? YES; Mean Corpuscular HGB CONC 32.8 g/dL (32.0-36.0); Mean Corpuscular Hemoglobin 30.2 pg (27.0-31.0); Mean Corpuscular Volume 92.2 fL (78.0-98.0); Mean Platelet Volume 10.8 fL (7.4-10.4); Metamyelocyte 7 % (0-0); Monocytes 6 % (0-10); Myelocyte 19 % (0-0); Neutrophil 49 % (42-75); Platelet Count 475 thou/uL (130-400); Platelet Morphology Comment Appears Increased; Polychromasia SLIGHT = 2-3 cells (100X) (0-2/hpf); RBC Distribution Width 12.8 % (11.5-14.5); Reactive Lymphocytes 1 % (0-10); Red Blood Cell (RBC) Count 3.23 mill/uL (4.20-5.40); White Blood Cell (WBC) Count 33.3 thou/uL (4.8-10.8)
[2020-10-24] MEDS: Levothyroxine Sodium 75 MCG TAB PO SCH (05:19)
[2020-10-24] MEDS ORDERED: Dextrose 50% Abboject 50 ML SYRINGE SLOW IVP SCH (06:30)
[2020-10-24] MEDS ORDERED: Insulin Regular 300 UNITS/3 ML VIAL IVP SCH (06:30)
[2020-10-24] MEDS ORDERED: Calcium Gluc 4.6 MEQ/10 ML (100 MG/ML) SLOW IVP SCH (06:30)
[2020-10-24] MEDS: Propofol 1,000 MG/100 ML VIAL IV PRN ×3 (07:53→22:03)
[2020-10-24 08:28] LABS: CO2 Tension 35.6 mmHg (35.0-45.0); Calcium, Ionized (arterial) 1.23 mmol/L (1.12-1.30); Carboxyhemoglobin (COHb) 0.1 gm% (0.0-3.0); Hemoglobin (Hb) 10.9 g/dL (12.0-16.0); Potassium - ABG Lab 4.95 mmol/L (3.70-5.30); pH, Arterial 7.43 (7.35-7.45)
[2020-10-24 08:30] LABS: O2 Tension (PaO2), arterial 51.4 mmHg (> 80.0); Puncture Site RRA
[2020-10-24] MEDS: Morphine 2 MG/ML VIAL SLOW IVP PRN ×2 (08:55→14:22)
[2020-10-24] MEDS: BARICITINIB 2 MG TAB PO SCH (09:24)
[2020-10-24] MEDS: Enoxaparin Sodium 100 MG/ML SYRINGE SC SCH ×2 (09:24→19:22)
[2020-10-24] MEDS: Senokot S 8.6-50 MG TAB PO SCH ×2 (09:24→19:22)
[2020-10-24] MEDS: Famotidine 20 MG TAB PO SCH ×2 (09:24→19:22)
[2020-10-24] MEDS: Aspirin Chewable 81 MG TAB PO SCH (09:25)
[2020-10-24] MEDS ORDERED: Furosemide 40 MG/4 ML VIAL SLOW IVP SCH (09:45)
[2020-10-24 10:29] LABS: Vancomycin, Trough 20.1 ug/mL
[2020-10-24] MEDS: Polyethylene Glycol 3350 17 GM Packet PER TUBE SCH (12:27)
[2020-10-24] MEDS: Vecuronium 10 MG VIAL IVP PRN ×3 (13:09→15:48)
[2020-10-24] MEDS ORDERED: Dexamethasone 4 mg/ml Vial SLOW IVP SCH (14:00)
[2020-10-24] MEDS ORDERED: Norepinephrine 8 MG/0.9% NS 250 ML ONE (17:19)
[2020-10-24] MEDS ORDERED: Norepinephrine 8 MG/0.9% NS 250 ML IVPB SCH (17:45)
[2020-10-24] MEDS ORDERED: Vancomycin 1.5 GRAM/300 ML BAG 1.5 GM in Premix Bag 1 BAG IVPB SCH (18:00)
[2020-10-25] MEDS ORDERED: Fentanyl CADD 100 ML ONE ×3 (01:01→21:45)
[2020-10-25] MEDS: Fentanyl CADD 100 ML IV SCH ×3 (01:34→21:48)
[2020-10-25] MEDS: Propofol 1,000 MG/100 ML VIAL IV PRN ×4 (01:34→21:49)
[2020-10-25 04:54] LABS: Band 9 % (5-11); Hemoglobin 9.3 g/dL (12.0-16.0); Hypochromia SLIGHT = 6-15 cells (100X) (0-5/hpf); Lymphocytes 6 % (21-51); MDiff Complete? YES; Mean Corpuscular HGB CONC 30.3 g/dL (32.0-36.0); Mean Corpuscular Hemoglobin 28.1 pg (27.0-31.0); Mean Corpuscular Volume 92.7 fL (78.0-98.0); Mean Platelet Volume 10.8 fL (7.4-10.4); Monocytes 2 % (0-10); Neutrophil 83 % (42-75); Platelet Count 335 thou/uL (130-400); Platelet Morphology Comment Appears Adequate; RBC Distribution Width 12.6 % (11.5-14.5); Red Blood Cell (RBC) Count 3.32 mill/uL (4.20-5.40); White Blood Cell (WBC) Count 31.7 thou/uL (4.8-10.8)
[2020-10-25 05:04] LABS: ALT (SGPT) 36 U/L (8-55); AST (SGOT) 16 U/L (5-34); Albumin 2.4 g/dL (3.4-4.8); Alkaline Phosphatase 88 U/L (40-110); Anion Gap 13 mmol/L (10-20); BUN (Urea Nitrogen) 59 mg/dL (9.8-20.1); Bilirubin, Total 0.4 mg/dL (0.2-1.2); Calc. Creatinine Clearance 91 mL/min (70-130); Calcium 8.6 mg/dL (7.8-10.44); Carbon Dioxide 22 mmol/L (23-31); Chloride 107 mmol/L (98-107); Glucose 133 mg/dL (80-115); Protein, Total 5.4 g/dL (5.8-8.1); Sodium 136 mmol/L (136-145)
[2020-10-25 05:16] VITALS: BMI 30.2
[2020-10-25] MEDS: Levothyroxine Sodium 75 MCG TAB PO SCH (05:27)
[2020-10-25] MEDS ORDERED: Calcium Gluc 4.6 MEQ/10 ML (100 MG/ML) SLOW IVP SCH (06:00)
[2020-10-25] MEDS ORDERED: Dextrose 50% Abboject 50 ML SYRINGE SLOW IVP SCH (06:00)
[2020-10-25] MEDS ORDERED: Insulin Regular 300 UNITS/3 ML VIAL IVP SCH (06:00)
[2020-10-25 08:03] LABS: Base Excess (BEa) -1.2 mEq/L (-2.0 to +3.0); CO2 Tension 42.5 mmHg (35.0-45.0); Calcium, Ionized (arterial) 1.24 mmol/L (1.12-1.30); Carboxyhemoglobin (COHb) 0.1 gm% (0.0-3.0); Hemoglobin (Hb) 10.5 g/dL (12.0-16.0); O2 Tension (PaO2), arterial 62.2 mmHg (> 80.0); Potassium - ABG Lab 5.18 mmol/L (3.70-5.30); pH, Arterial 7.37 (7.35-7.45)
[2020-10-25 08:05] LABS: ALV-art Gradient 348.125 mmHg (0-20); Puncture Site RRA
[2020-10-25] MEDS ORDERED: Furosemide 40 MG/4 ML VIAL SLOW IVP SCH (09:00)
[2020-10-25] MEDS: Dexamethasone 4 mg/ml Vial SLOW IVP SCH (09:13)
[2020-10-25] MEDS: Aspirin Chewable 81 MG TAB PO SCH (09:14)
[2020-10-25] MEDS: BARICITINIB 2 MG TAB PO SCH (09:14)
[2020-10-25] MEDS: Famotidine 20 MG TAB PO SCH ×2 (09:14→21:48)
[2020-10-25] MEDS: Enoxaparin Sodium 100 MG/ML SYRINGE SC SCH ×2 (09:14→21:48)
[2020-10-25] MEDS: Oxacillin 2 GM in Sodium Chloride 0.9% 100 ML IVPB SCH ×4 (09:15→21:37)
[2020-10-25] MEDS: Polyethylene Glycol 3350 17 GM Packet PER TUBE SCH (09:15)
[2020-10-25] MEDS: Senokot S 8.6-50 MG TAB PO SCH ×2 (09:16→21:48)
[2020-10-25 12:01] LABS: Potassium 5.3 mmol/L (3.5-5.1)
[2020-10-25] MEDS: Vecuronium 10 MG VIAL IVP PRN (12:12)
[2020-10-26] MEDS: Oxacillin 2 GM in Sodium Chloride 0.9% 100 ML IVPB SCH ×6 (00:38→21:46)
[2020-10-26 04:51] LABS: Hemoglobin 9.4 g/dL (12.0-16.0); Mean Corpuscular HGB CONC 31.7 g/dL (32.0-36.0); Mean Corpuscular Hemoglobin 29.5 pg (27.0-31.0); Mean Corpuscular Volume 92.9 fL (78.0-98.0); Platelet Count 364 thou/uL (130-400); RBC Distribution Width 12.4 % (11.5-14.5); White Blood Cell (WBC) Count 28.9 thou/uL (4.8-10.8)
[2020-10-26 04:59] LABS: ALT (SGPT) 57 U/L (8-55); AST (SGOT) 23 U/L (5-34); Albumin 2.5 g/dL (3.4-4.8); Alkaline Phosphatase 110 U/L (40-110); Anion Gap 12 mmol/L (10-20); BUN (Urea Nitrogen) 53 mg/dL (9.8-20.1); Bilirubin, Direct 0.2 mg/dL (0.1-0.3); Bilirubin, Total 0.4 mg/dL (0.2-1.2); Calc. Creatinine Clearance 110 mL/min (70-130); Calcium 8.7 mg/dL (7.8-10.44); Carbon Dioxide 24 mmol/L (23-31); Chloride 107 mmol/L (98-107); Globulin 2.8 g/dL (2.4-3.5); Glucose 100 mg/dL (80-115); Potassium 5.1 mmol/L (3.5-5.1); Protein, Total 5.3 g/dL (5.8-8.1); Sodium 138 mmol/L (136-145)
[2020-10-26 05:16] LABS: Band 12 % (5-11); Large Platelets SLIGHT; Lymphocytes 8 % (21-51); MDiff Complete? YES; Metamyelocyte 4 % (0-0); Monocytes 3 % (0-10); Myelocyte 11 % (0-0); Neutrophil 62 % (42-75); Platelet Morphology Comment Appears Adequate
[2020-10-26] MEDS: Propofol 1,000 MG/100 ML VIAL IV PRN ×4 (05:29→17:41)
[2020-10-26] MEDS: Levothyroxine Sodium 75 MCG TAB PO SCH (05:29)
[2020-10-26 07:07] LABS: Actual Bicarbonate (HCO3a) 24.6 mEq/L (22-28); Base Excess (BEa) 0.3 mEq/L (-2.0 to +3.0); CO2 Tension 38.5 mmHg (35.0-45.0); Carboxyhemoglobin (COHb) 0.2 gm% (0.0-3.0); Hemoglobin (Hb) 10.1 g/dL (12.0-16.0); Potassium - ABG Lab 4.78 mmol/L (3.70-5.30); pH, Arterial 7.42 (7.35-7.45)
[2020-10-26 07:08] LABS: Calcium, Ionized (arterial) 1.17 mmol/L (1.12-1.30)
[2020-10-26 07:18] LABS: ALV-art Gradient 356.525 mmHg (0-20); O2 Tension (PaO2), arterial 58.8 mmHg (> 80.0); Puncture Site RRA
[2020-10-26] MEDS ORDERED: Fentanyl CADD 100 ML ONE ×2 (08:02→19:31)
[2020-10-26] MEDS: Enoxaparin Sodium 100 MG/ML SYRINGE SC SCH ×2 (08:05→21:45)
[2020-10-26] MEDS: Aspirin Chewable 81 MG TAB PO SCH (08:06)
[2020-10-26] MEDS: Famotidine 20 MG TAB PO SCH ×2 (08:06→21:46)
[2020-10-26] MEDS: BARICITINIB 2 MG TAB PO SCH (08:06)
[2020-10-26] MEDS: Dexamethasone 4 mg/ml Vial SLOW IVP SCH (08:06)
[2020-10-26] MEDS: Vecuronium 10 MG VIAL IVP PRN ×5 (08:09→23:44)
[2020-10-26] MEDS: Lorazepam 2 MG/ML VIAL SLOW IVP PRN ×4 (09:55→23:44)
[2020-10-26] MEDS: Senokot S 8.6-50 MG TAB PO SCH ×2 (10:16→21:46)
[2020-10-26] MEDS: Polyethylene Glycol 3350 17 GM Packet PER TUBE SCH (10:16)
[2020-10-26] MEDS: DEXMEDETOMIDINE IVPB SCH ×2 (17:51→23:45)
[2020-10-26] MEDS: SODIUM CHLORIDE 0.9% IVPB SCH ×2 (17:51→23:45)
[2020-10-26] MEDS ORDERED: Sterile Water 10 ML ONE ×2 (22:46→23:37)
[2020-10-27] MEDS ORDERED: Sterile Water 10 ML ONE ×5 (02:10→23:47)
[2020-10-27] MEDS: Vecuronium 10 MG VIAL IVP PRN ×6 (02:31→23:49)
[2020-10-27] MEDS: Lorazepam 2 MG/ML VIAL SLOW IVP PRN ×3 (02:31→19:27)
[2020-10-27] MEDS: Oxacillin 2 GM in Sodium Chloride 0.9% 100 ML IVPB SCH ×6 (02:32→22:29)
[2020-10-27] MEDS ORDERED: Fentanyl CADD 100 ML ONE (05:00)
[2020-10-27 05:19] LABS: ALT (SGPT) 72 U/L (8-55); AST (SGOT) 19 U/L (5-34); Albumin 2.6 g/dL (3.4-4.8); Alkaline Phosphatase 132 U/L (40-110); Anion Gap 12 mmol/L (10-20); BUN (Urea Nitrogen) 50 mg/dL (9.8-20.1); Bilirubin, Total 0.3 mg/dL (0.2-1.2); Calc. Creatinine Clearance 100 mL/min (70-130); Calcium 8.2 mg/dL (7.8-10.44); Carbon Dioxide 26 mmol/L (23-31); Chloride 107 mmol/L (98-107); Globulin 2.2 g/dL (2.4-3.5); Glucose 99 mg/dL (80-115); Potassium 4.9 mmol/L (3.5-5.1); Protein, Total 4.8 g/dL (5.8-8.1); Sodium 140 mmol/L (136-145)
[2020-10-27] MEDS: Fentanyl CADD 100 ML IV SCH ×2 (05:28→14:37)
[2020-10-27] MEDS: Levothyroxine Sodium 75 MCG TAB PO SCH (05:30)
[2020-10-27] MEDS: Propofol 500 MG/50 ML VIAL IV PRN ×2 (06:24→08:12)
[2020-10-27 07:57] LABS: Actual Bicarbonate (HCO3a) 24.3 mEq/L (22-28); CO2 Tension 54.9 mmHg (35.0-45.0); Calcium, Ionized (arterial) 1.19 mmol/L (1.12-1.30); Carboxyhemoglobin (COHb) 0.4 gm% (0.0-3.0); Hemoglobin (Hb) 10.3 g/dL (12.0-16.0); O2 Tension (PaO2), arterial 73.8 mmHg (> 80.0); pH, Arterial 7.26 (7.35-7.45)
[2020-10-27] MEDS: Enoxaparin Sodium 100 MG/ML SYRINGE SC SCH ×2 (08:12→21:58)
[2020-10-27] MEDS: Aspirin Chewable 81 MG TAB PO SCH (08:12)
[2020-10-27] MEDS: BARICITINIB 2 MG TAB PO SCH (08:13)
[2020-10-27] MEDS: Famotidine 20 MG TAB PO SCH ×2 (08:13→21:58)
[2020-10-27] MEDS: Dexamethasone 4 mg/ml Vial SLOW IVP SCH (08:13)
[2020-10-27 08:37] LABS: ALV-art Gradient 249.725 mmHg (0-20); Puncture Site RRA
[2020-10-27] MEDS ORDERED: Furosemide 40 MG/4 ML VIAL SLOW IVP SCH (09:30)
[2020-10-27] MEDS: Senokot S 8.6-50 MG TAB PO SCH ×2 (09:52→22:29)
[2020-10-27] MEDS: Polyethylene Glycol 3350 17 GM Packet PER TUBE SCH (09:52)
[2020-10-27] MEDS: SODIUM CHLORIDE 0.9% IVPB SCH ×2 (10:21→17:33)
[2020-10-27] MEDS: DEXMEDETOMIDINE IVPB SCH ×2 (10:21→17:33)
[2020-10-27] MEDS: Propofol 1,000 MG/100 ML VIAL IV PRN ×2 (14:04→22:06)
[2020-10-27] MEDS ORDERED: Sodium Bicarb 50 MEQ/50 ML Abboject 8.4% SYRINGE ONE (18:47)
[2020-10-27] MEDS ORDERED: Calcium Chloride 1 GM/10 ML Abboject SYRINGE ONE (18:47)
[2020-10-27] MEDS ORDERED: Dextrose 50% Abboject 50 ML SYRINGE ONE (18:47)
[2020-10-27] MEDS ORDERED: EPINEPHrine 1 MG/10 ML Abboject SYRINGE ONE (18:47)
[2020-10-27 20:00] LABS: Hemoglobin 9.6 g/dL (12.0-16.0); Mean Corpuscular HGB CONC 31.3 g/dL (32.0-36.0); Mean Corpuscular Hemoglobin 29.2 pg (27.0-31.0); Mean Corpuscular Volume 93.3 fL (78.0-98.0); Mean Platelet Volume 11.4 fL (7.4-10.4); Platelet Count 394 thou/uL (130-400); RBC Distribution Width 12.6 % (11.5-14.5); Red Blood Cell (RBC) Count 3.29 mill/uL (4.20-5.40); White Blood Cell (WBC) Count 35.6 thou/uL (4.8-10.8)
[2020-10-27 20:17] LABS: Band 12 % (5-11); Eosinophils 1 % (0-10); Large Platelets SLIGHT; Lymphocytes 9 % (21-51); MDiff Complete? YES; Metamyelocyte 5 % (0-0); Monocytes 4 % (0-10); Myelocyte 5 % (0-0); Neutrophil 64 % (42-75); Platelet Morphology Comment Appears Adequate
[2020-10-27 20:26] LABS: ALT (SGPT) 57 U/L (8-55); AST (SGOT) 13 U/L (5-34); Albumin 2.4 g/dL (3.4-4.8); Alkaline Phosphatase 132 U/L (40-110); Anion Gap 11 mmol/L (10-20); BUN (Urea Nitrogen) 47 mg/dL (9.8-20.1); Bilirubin, Total 0.3 mg/dL (0.2-1.2); Calc. Creatinine Clearance 78 mL/min (70-130); Calcium 13.8 mg/dL (7.8-10.44); Carbon Dioxide 28 mmol/L (23-31); Chloride 105 mmol/L (98-107); Globulin 2.2 g/dL (2.4-3.5); Glucose 344 mg/dL (80-115); Magnesium 1.9 mg/dL (1.6-2.6); Phosphorus 5.7 mg/dL (2.3-4.7); Potassium 4.9 mmol/L (3.5-5.1); Protein, Total 4.6 g/dL (5.8-8.1); Sodium 139 mmol/L (136-145)
[2020-10-28] MEDS: DEXMEDETOMIDINE IVPB SCH ×4 (00:21→23:40)
[2020-10-28] MEDS: SODIUM CHLORIDE 0.9% IVPB SCH ×4 (00:21→23:40)
[2020-10-28] MEDS: Oxacillin 2 GM in Sodium Chloride 0.9% 100 ML IVPB SCH ×2 (00:21→04:59)
[2020-10-28] MEDS ORDERED: Fentanyl CADD 100 ML ONE ×3 (00:23→21:08)
[2020-10-28] MEDS: Lorazepam 2 MG/ML VIAL SLOW IVP PRN ×6 (00:24→23:40)
[2020-10-28] MEDS: Fentanyl CADD 100 ML IV SCH ×3 (00:25→21:25)
[2020-10-28] MEDS: Morphine 2 MG/ML VIAL SLOW IVP PRN (01:04)
[2020-10-28] MEDS ORDERED: Sterile Water 10 ML ONE ×3 (02:46→22:30)
[2020-10-28] MEDS: Vecuronium 10 MG VIAL IVP PRN ×4 (02:49→22:34)
[2020-10-28] MEDS: Propofol 1,000 MG/100 ML VIAL IV PRN ×5 (03:00→22:56)
[2020-10-28] MEDS: Levothyroxine Sodium 75 MCG TAB PO SCH (05:06)
[2020-10-28 05:33] LABS: Phosphorus 6.1 mg/dL (2.3-4.7)
[2020-10-28 05:40] LABS: ALT (SGPT) 104 U/L (8-55); AST (SGOT) 36 U/L (5-34); Albumin 2.8 g/dL (3.4-4.8); Alkaline Phosphatase 187 U/L (40-110); Anion Gap 13 mmol/L (10-20); BUN (Urea Nitrogen) 49 mg/dL (9.8-20.1); Bilirubin, Total 0.4 mg/dL (0.2-1.2); Calc. Creatinine Clearance 96 mL/min (70-130); Calcium 9.3 mg/dL (7.8-10.44); Carbon Dioxide 26 mmol/L (23-31); Chloride 106 mmol/L (98-107); Globulin 2.4 g/dL (2.4-3.5); Glucose 111 mg/dL (80-115); Magnesium 1.8 mg/dL (1.6-2.6); Potassium 4.5 mmol/L (3.5-5.1); Protein, Total 5.2 g/dL (5.8-8.1); Sodium 140 mmol/L (136-145)
[2020-10-28 05:44] LABS: Hemoglobin 9.6 g/dL (12.0-16.0); Mean Corpuscular HGB CONC 30.5 g/dL (32.0-36.0); Mean Corpuscular Hemoglobin 28.4 pg (27.0-31.0); Mean Corpuscular Volume 93.2 fL (78.0-98.0); Mean Platelet Volume 11.2 fL (7.4-10.4); Platelet Count 501 thou/uL (130-400); RBC Distribution Width 12.9 % (11.5-14.5); Red Blood Cell (RBC) Count 3.37 mill/uL (4.20-5.40); White Blood Cell (WBC) Count 50.6 thou/uL (4.8-10.8)
[2020-10-28 06:23] LABS: Band 11 % (5-11); Eosinophils 1 % (0-10); Large Platelets SLIGHT; Lymphocytes 1 % (21-51); MDiff Complete? YES; Metamyelocyte 4 % (0-0); Monocytes 5 % (0-10); Myelocyte 10 % (0-0); Neutrophil 68 % (42-75); Platelet Morphology Comment Appears Increased
[2020-10-28 08:15] LABS: Actual Bicarbonate (HCO3a) 26.4 mEq/L (22-28); Base Excess (BEa) -2.9 mEq/L (-2.0 to +3.0); Calcium, Ionized (arterial) 1.32 mmol/L (1.12-1.30); Carboxyhemoglobin (COHb) 0.9 gm% (0.0-3.0); Hemoglobin (Hb) 11.4 g/dL (12.0-16.0); O2 Tension (PaO2), arterial 63.1 mmHg (> 80.0); Potassium - ABG Lab 4.05 mmol/L (3.70-5.30)
[2020-10-28 09:07] LABS: Puncture Site RRA; pH, Arterial 7.19 (7.35-7.45)
[2020-10-28] MEDS ORDERED: Furosemide 40 MG/4 ML VIAL SLOW IVP SCH (09:15)
[2020-10-28] MEDS ORDERED: MEROPENEM 1 GM/50 ML 1 GM in Premix Bag 1 BAG IVPB SCH (10:00)
[2020-10-28] MEDS ORDERED: VANCOMYCIN 1.25 GM/250 ML BAG 1.25 GM in Premix Bag 1 BAG IVPB SCH (10:00)
[2020-10-28] MEDS: Polyethylene Glycol 3350 17 GM Packet PER TUBE SCH (10:01)
[2020-10-28] MEDS: Enoxaparin Sodium 100 MG/ML SYRINGE SC SCH ×2 (10:01→21:23)
[2020-10-28] MEDS: Aspirin Chewable 81 MG TAB PO SCH (10:02)
[2020-10-28] MEDS: Famotidine 20 MG TAB PO SCH ×2 (10:02→21:24)
[2020-10-28] MEDS: Senokot S 8.6-50 MG TAB PO SCH ×2 (10:02→21:25)
[2020-10-28 10:07] LABS: Actual Bicarbonate (HCO3a) 25.6 mEq/L (22-28); Base Excess (BEa) 0.5 mEq/L (-2.0 to +3.0); CO2 Tension 43.1 mmHg (35.0-45.0); Calcium, Ionized (arterial) 1.23 mmol/L (1.12-1.30); Carboxyhemoglobin (COHb) 0.3 gm% (0.0-3.0); Hemoglobin (Hb) 9.7 g/dL (12.0-16.0); O2 Tension (PaO2), arterial 64.7 mmHg (> 80.0); Potassium - ABG Lab 4.04 mmol/L (3.70-5.30); pH, Arterial 7.39 (7.35-7.45)
[2020-10-28 10:10] LABS: ALV-art Gradient 380.525 mmHg (0-20); Puncture Site RRA
[2020-10-28] MEDS ORDERED: Iopamidol-370 76% 500 ML 1 ML ONE (11:47)
[2020-10-28] MEDS ORDERED: Meropenem 1 GM in Sodium Chloride 0.9% 100 ML IVPB SCH (14:00)
[2020-10-28] MEDS: MEROPENEM 1 GM/50 ML 1 GM in Premix Bag 1 BAG IVPB SCH (18:45)
[2020-10-28] MEDS: Vancomycin HCl 1.25 GM in Sodium Chloride 0.9% 250 ML 250 ML IVPB SCH (21:28)
[2020-10-28] MEDS: Acetaminophen 650 MG/20.3 ML UDCUP PO PRN (23:43)
[2020-10-29] MEDS: MEROPENEM 1 GM/50 ML 1 GM in Premix Bag 1 BAG IVPB SCH ×3 (01:52→16:26)
[2020-10-29] MEDS ORDERED: Sterile Water 10 ML ONE ×2 (03:31→07:38)
[2020-10-29] MEDS: Lorazepam 2 MG/ML VIAL SLOW IVP PRN ×3 (03:34→11:35)
[2020-10-29] MEDS: Propofol 1,000 MG/100 ML VIAL IV PRN ×4 (03:34→20:33)
[2020-10-29] MEDS: Vecuronium 10 MG VIAL IVP PRN ×3 (03:34→11:35)
[2020-10-29 04:41] LABS: Hemoglobin 7.7 g/dL (12.0-16.0); Mean Corpuscular HGB CONC 32.4 g/dL (32.0-36.0); Mean Corpuscular Hemoglobin 29.8 pg (27.0-31.0); Platelet Count 264 thou/uL (130-400); RBC Distribution Width 12.7 % (11.5-14.5); Red Blood Cell (RBC) Count 2.57 mill/uL (4.20-5.40); White Blood Cell (WBC) Count 24.5 thou/uL (4.8-10.8)
[2020-10-29 04:48] LABS: ALT (SGPT) 60 U/L (8-55); AST (SGOT) 18 U/L (5-34); Albumin 2.3 g/dL (3.4-4.8); Alkaline Phosphatase 139 U/L (40-110); Anion Gap 12 mmol/L (10-20); BUN (Urea Nitrogen) 45 mg/dL (9.8-20.1); Bilirubin, Total 0.3 mg/dL (0.2-1.2); Calc. Creatinine Clearance 101 mL/min (70-130); Calcium 8.1 mg/dL (7.8-10.44); Carbon Dioxide 25 mmol/L (23-31); Chloride 108 mmol/L (98-107); Glucose 100 mg/dL (80-115); Magnesium 1.6 mg/dL (1.6-2.6); Potassium 3.7 mmol/L (3.5-5.1); Protein, Total 4.3 g/dL (5.8-8.1); Sodium 141 mmol/L (136-145)
[2020-10-29] MEDS: Levothyroxine Sodium 75 MCG TAB PO SCH (06:15)
[2020-10-29 06:38] LABS: Band 22 % (5-11); Large Platelets SLIGHT; Lymphocytes 2 % (21-51); MDiff Complete? YES; Metamyelocyte 2 % (0-0); Monocytes 2 % (0-10); Myelocyte 3 % (0-0); Neutrophil 69 % (42-75); Platelet Morphology Comment Appears Adequate
[2020-10-29] MEDS ORDERED: Fentanyl CADD 100 ML ONE ×2 (07:26→17:35)
[2020-10-29] MEDS: Fentanyl CADD 100 ML IV SCH ×2 (07:28→17:41)
[2020-10-29 08:05] LABS: Actual Bicarbonate (HCO3a) 22.8 mEq/L (22-28); Base Excess (BEa) -1.5 mEq/L (-2.0 to +3.0); CO2 Tension 36.5 mmHg (35.0-45.0); Calcium, Ionized (arterial) 1.17 mmol/L (1.12-1.30); Carboxyhemoglobin (COHb) 0.5 gm% (0.0-3.0); Hemoglobin (Hb) 8.7 g/dL (12.0-16.0); Potassium - ABG Lab 3.31 mmol/L (3.70-5.30); pH, Arterial 7.41 (7.35-7.45)
[2020-10-29] MEDS: SODIUM CHLORIDE 0.9% IVPB SCH (08:41)
[2020-10-29] MEDS: Vancomycin HCl 1.25 GM in Sodium Chloride 0.9% 250 ML 250 ML IVPB SCH ×2 (08:41→21:47)
[2020-10-29] MEDS: Aspirin Chewable 81 MG TAB PO SCH (08:41)
[2020-10-29] MEDS: Famotidine 20 MG TAB PO SCH ×2 (08:41→20:34)
[2020-10-29] MEDS: DEXMEDETOMIDINE IVPB SCH (08:41)
[2020-10-29] MEDS: Enoxaparin Sodium 100 MG/ML SYRINGE SC SCH ×2 (08:42→20:33)
[2020-10-29] MEDS: Senokot S 8.6-50 MG TAB PO SCH ×2 (08:42→21:14)
[2020-10-29] MEDS: Polyethylene Glycol 3350 17 GM Packet PER TUBE SCH (08:42)
[2020-10-29 08:54] LABS: O2 Tension (PaO2), arterial 55.9 mmHg (> 80.0); Puncture Site RRA
[2020-10-29 08:55] LABS: Phosphorus 4.2 mg/dL (2.3-4.7)
[2020-10-29 08:55] LABS: ALV-art Gradient 397.575 mmHg (0-20)
[2020-10-29 12:59] LABS: Actual Bicarbonate (HCO3a) 25.3 mEq/L (22-28); Base Excess (BEa) -0.8 mEq/L (-2.0 to +3.0); Calcium, Ionized (arterial) 1.17 mmol/L (1.12-1.30); Carboxyhemoglobin (COHb) 0.1 gm% (0.0-3.0); Hemoglobin (Hb) 8.8 g/dL (12.0-16.0); pH, Arterial 7.33 (7.35-7.45)
[2020-10-29 13:07] LABS: Puncture Site RRA
[2020-10-29] MEDS: Dexmedetomidine 1,000 MCG in Sodium Chloride 0.9% 250 ML 240 ML IVPB SCH (16:53)
[2020-10-29] MEDS ORDERED: Lactated Ringer's 500 ML IV SCH (18:00)
[2020-10-29 22:08] LABS: Vancomycin, Trough 27.1 ug/mL
[2020-10-30] MEDS: Propofol 1,000 MG/100 ML VIAL IV PRN (02:05)
[2020-10-30] MEDS: MEROPENEM 1 GM/50 ML 1 GM in Premix Bag 1 BAG IVPB SCH ×2 (02:05→09:08)
[2020-10-30] MEDS ORDERED: Fentanyl CADD 100 ML ONE (03:40)
[2020-10-30] MEDS: Fentanyl CADD 100 ML IV SCH (03:45)
[2020-10-30 04:51] LABS: Hemoglobin 7.5 g/dL (12.0-16.0); Mean Corpuscular HGB CONC 31.9 g/dL (32.0-36.0); Mean Corpuscular Hemoglobin 29.8 pg (27.0-31.0); Mean Corpuscular Volume 93.4 fL (78.0-98.0); Mean Platelet Volume 10.9 fL (7.4-10.4); Platelet Count 257 thou/uL (130-400); RBC Distribution Width 13.3 % (11.5-14.5); Red Blood Cell (RBC) Count 2.52 mill/uL (4.20-5.40); White Blood Cell (WBC) Count 26.9 thou/uL (4.8-10.8)
[2020-10-30 05:16] LABS: ALT (SGPT) 41 U/L (8-55); AST (SGOT) 13 U/L (5-34); Albumin 2.3 g/dL (3.4-4.8); Alkaline Phosphatase 120 U/L (40-110); BUN (Urea Nitrogen) 35 mg/dL (9.8-20.1); Bilirubin, Total 0.3 mg/dL (0.2-1.2); Calc. Creatinine Clearance 112 mL/min (70-130); Calcium 8.2 mg/dL (7.8-10.44); Carbon Dioxide 23 mmol/L (23-31); Chloride 108 mmol/L (98-107); Globulin 2.3 g/dL (2.4-3.5); Glucose 109 mg/dL (80-115); Potassium 3.4 mmol/L (3.5-5.1); Protein, Total 4.6 g/dL (5.8-8.1); Sodium 141 mmol/L (136-145)
[2020-10-30 05:20] LABS: Anion Gap 13 mmol/L (10-20)
[2020-10-30 05:50] LABS: Band 25 % (5-11); Eosinophils 1 % (0-10); Lymphocytes 6 % (21-51); MDiff Complete? YES; Monocytes 5 % (0-10); Neutrophil 63 % (42-75); Platelet Morphology Comment Appears Adequate; RBC Morphology Normal
[2020-10-30] MEDS: Levothyroxine Sodium 75 MCG TAB PO SCH (06:28)
[2020-10-30] MEDS: Dexmedetomidine 1,000 MCG in Sodium Chloride 0.9% 250 ML 240 ML IVPB SCH ×2 (06:28)
[2020-10-30] MEDS ORDERED: Electrolyte Replacement Protocol FS PRN (08:30)
[2020-10-30 08:48] LABS: Actual Bicarbonate (HCO3a) 23.9 mEq/L (22-28); Base Excess (BEa) -0.9 mEq/L (-2.0 to +3.0); CO2 Tension 39.6 mmHg (35.0-45.0); Calcium, Ionized (arterial) 1.18 mmol/L (1.12-1.30); Carboxyhemoglobin (COHb) 0.8 gm% (0.0-3.0); Hemoglobin (Hb) 7.6 g/dL (12.0-16.0); O2 Tension (PaO2), arterial 67.8 mmHg (> 80.0); Potassium - ABG Lab 3.39 mmol/L (3.70-5.30)
[2020-10-30] MEDS ORDERED: Potassium Chloride 40 MEQ in Premix Bag 1 BAG IVPB SCH (09:00)
[2020-10-30] MEDS ORDERED: Magnesium 2 GM/50 ML 2 GM in Premix Bag 1 BAG IVPB SCH (09:00)
[2020-10-30] MEDS: Aspirin Chewable 81 MG TAB PO SCH (09:02)
[2020-10-30] MEDS: Enoxaparin Sodium 100 MG/ML SYRINGE SC SCH (09:02)
[2020-10-30 09:03] LABS: Puncture Site LRA
[2020-10-30] MEDS: Famotidine 20 MG TAB PO SCH (09:06)
[2020-10-30] MEDS: Senokot S 8.6-50 MG TAB PO SCH (09:07)
[2020-10-30] MEDS: Polyethylene Glycol 3350 17 GM Packet PER TUBE SCH (09:07)
[2020-10-30] MEDS: Acetaminophen 650 MG/20.3 ML UDCUP PO PRN (10:01)
[2020-10-30 10:45] VITALS: BP 164/75
[2020-10-30] MEDS ORDERED: EPINEPHrine 1 MG/10 ML Abboject SYRINGE ONE (10:50)
[2020-10-30] MEDS ORDERED: Lorazepam 2 MG/ML VIAL SLOW IVP SCH (13:45)
[2020-10-30] MEDS ORDERED: Morphine 4 MG/ML VIAL SLOW IVP SCH (13:45)
[2020-10-30] MEDS ORDERED: Vancomycin 1 GM in Premix Bag 1 BAG IVPB SCH (14:00)
[2020-10-30] MEDS ORDERED: Morphine 4 MG/ML VIAL SLOW IVP PRN (14:30)
[2020-10-30] MEDS ORDERED: Lorazepam 2 MG/ML VIAL SLOW IVP PRN (14:30)
[2020-10-30 14:38] VITALS: TEMP 98.8
== END 2020-10-30 14:47 | disposition expired | DRG 870 ==
LOC: ERS 13:57 → ERHOLD 15:07 → IMCU/EMU 15:15 → CCU 10-16 19:29
PROVIDERS: ADMIT Family Medicine; ATTEND Internal Medicine
PROC: 5A09457 Assistance with Respiratory Ventilation, 24-96 Consecutive Hours, Continuous Positive Airway Pressure (ICD-10-PCS; 2020-10-13)
PROC: 3E0333Z Introduction of Anti-inflammatory into Peripheral Vein, Percutaneous Approach (ICD-10-PCS; 2020-10-13)
PROC: 8E0ZXY6 Isolation (ICD-10-PCS; 2020-10-13)
PROC: XW0DXM6 Introduction of Baricitinib into Mouth and Pharynx, External Approach, New Technology Group 6 (ICD-10-PCS; 2020-10-15)
PROC: 5A1955Z Respiratory Ventilation, Greater than 96 Consecutive Hours (ICD-10-PCS; principal; 2020-10-16)
PROC: 3E0G76Z Introduction of Nutritional Substance into Upper GI, Via Natural or Artificial Opening (ICD-10-PCS; 2020-10-16)
PROC: 0DH67UZ Insertion of Feeding Device into Stomach, Via Natural or Artificial Opening (ICD-10-PCS; 2020-10-16)
PROC: 0BH17EZ Insertion of Endotracheal Airway into Trachea, Via Natural or Artificial Opening (ICD-10-PCS; 2020-10-16)
PROC: 3E033XZ Introduction of Vasopressor into Peripheral Vein, Percutaneous Approach (ICD-10-PCS; 2020-10-24)
PROC: 0B9M7ZX Drainage of Bilateral Lungs, Via Natural or Artificial Opening, Diagnostic (ICD-10-PCS; 2020-10-28)
DX: A41.89 Other specified sepsis (principal); U07.1 COVID-19; J12.82 Pneumonia due to coronavirus disease 2019; J80 Acute respiratory distress syndrome; J15.211 Pneumonia due to Methicillin susceptible Staphylococcus aureus; R65.21 Severe sepsis with septic shock; I21.3 ST elevation (STEMI) myocardial infarction of unspecified site; A08.39 Other viral enteritis; F33.9 Major depressive disorder, recurrent, unspecified; Z66 Do not resuscitate; Z51.5 Encounter for palliative care; E03.9 Hypothyroidism, unspecified; F41.9 Anxiety disorder, unspecified; E66.9 Obesity, unspecified; E78.5 Hyperlipidemia, unspecified; I10 Essential (primary) hypertension; I45.81 Long QT syndrome; D72.829 Elevated white blood cell count, unspecified; T38.0X5A Adverse effect of glucocorticoids and synthetic analogues, initial encounter; E11.65 Type 2 diabetes mellitus with hyperglycemia; E87.5 Hyperkalemia; R00.1 Bradycardia, unspecified; J40 Bronchitis, not specified as acute or chronic; I46.8 Cardiac arrest due to other underlying condition; Z68.31 Body mass index [BMI] 31.0-31.9, adult; Z78.1 Physical restraint status; Z79.899 Other long term (current) drug therapy; Z79.890 Hormone replacement therapy; Z98.890 Other specified postprocedural states; Z83.3 Family history of diabetes mellitus; Z82.49 Family history of ischemic heart disease and other diseases of the circulatory system
CPT/HCPCS: 36415; 36416; 36600; 71045; 71275; 80048; 80053; 80076; 80202; 82550; 82553; 82728; 82805; 83605; 83735; 84100; 84145; 84443; 84478; 85014; 85018; 85025; 85049; 85379; 86140; 87040; 87070; 87077; 87186; 87205; 94002; 94003; 94660; 96374; J0171; J0692; J1100; J1650; J1815; J1940; J2001; J2060; J2185; J2250; J2270; J2700; J2704; J2930; J3010; J3370; J3475; J3480; J3490; J7050; J7120; Q9967; S0028